=== PATIENT | male | born 1970 | race Caucasian/White ===

== ENCOUNTER 2025-03-14 14:33 | Outpatient (AMB) | payer BC, SELFPAY ==
--- NOTE | 2025-03-14 14:34 | A.OFFVIS_ITS ---
Vital Signs 03/14/25 14:36 Height 5 ft 9 in Weight 181 lb 8 oz BMI 26.8 BP 102/76 Blood Pressure Location Rt brachial Position Sitting Pulse 55 Pulse Source Pulse Oximeter Pulse Oximetry (%) 99 Oxygen Delivery Method Room Air Intake Visit Reasons: Asthma Allergies No Known Allergies Allergy (Verified 03/14/25 14:38) HPI Comments Details: Xavier is a 54 year old male, never smoker, with underlying h/o childhood asthma and anxiety. He was referred by PCP for pulmonary evaluation. He reports a history of childhood asthma that was relatively controlled with the use of albuterol MDI PRN, and symptoms resolved until his late 20s and again recently after developing an URI in October that lingered for approximately one month, for which he did not seek timely care. His primary care provider ordered a chest x- ray in early November which demonstrated tiny granulomas of the RUL and prescribed abx, Flonase, Zyrtec in addition to Albuterol MDI. Since initiating he reports some improvements in mucus production, reporting occasional cough. He is quite active and denies any respiratory symptoms during activity but notes a sensation of chest tightness and labored breathing towards the end of the day, hours after he has exerted himself. The patient has an albuterol inhaler but uses it infrequently. He notes that his symptoms are sometimes triggered by stress. He denies any known occupational or environmental exposures, although questions seasonal allergies. [facility] Social History (Updated 03/14/25 @ 14:38 by Selina Saini [facility]) Patient Tobacco Use Status: Never used Tobacco Review of Systems Narrative Const Denies chills, Denies excessive sweating, Denies fever(s), Denies headache(s) and Denies night sweats Eyes Denies dry eyes, Denies irritation and Denies itchy eyes ENT Reports Normal hearing present, Denies headache(s), Denies post nasal drip and Denies sore throat Card Denies chest pain, Denies chest pain at rest, Denies chest pain with activity, Denies claudication, Denies leg edema, Denies orthopnea and Denies paroxysmal nocturnal dyspnea Resp Denies chest congestion, Denies excessive phlegm production, Denies pain on inspiration, Denies pain with cough, Denies stridor and Denies wheezing Musc Denies myalgias Neuro Reports Normal hearing present and Denies headache(s) Endo Denies excessive sweating Todd/Lymph Denies lymphadenopathy Aller/Immun Denies itchy eyes, Denies seasonal rhinorrhea and Denies wheezing Physical Exam Exam Exam: Vital Signs: Last Vital Signs Pulse 55 03/14/25 14:36 BP 102/76 03/14/25 14:36 Pulse Ox 99 03/14/25 14:36 Oxygen Delivery Method Room Air 03/14/25 14:36 BMI result Body Mass Index 26.8 Const General: cooperative, healthy appearing, comfortable, no acute distress, well developed and alert Orientation/consciousness: patient oriented x3 Limitations: no limitations HEENT Head: Yes normal to inspection, Yes normocephalic and Yes atraumatic Ears: hearing grossly normal bilaterally and external ears normal Eyes General: appearance normal, both eyes and all related structures Eyelids: Yes eyelids normal Sclerae: sclerae normal EOM: EOMs intact bilaterally Neck Neck: Yes normal visual inspection and Yes no lymphadenopathy Lymphatic: no lymphadenopathy noted Chest Chest palpation & inspection: normal inspection of the chest Resp Effort & Inspection: normal respiratory effort, able to speak in complete sentences, no audible wheezes, no cough, no stridor, not tachypneic, no tripod positioning and no use of accessory muscles Auscultation: clear to auscultation bilaterally Cardio Jugular venous distension: no JVD Rate: regular rate Rhythm: regular rhythm Skin Other: warm, dry General skin exam: no rashes or lesions noted Neuro General: patient oriented x3 Cranial nerves: Yes Normal hearing present Cognition (Neuro): normal cognition Gait exam (Neuro): Normal gait present Extrem General: Yes normal to inspection, Yes capillary refill normal, Yes no clubbing, cyanosis or edema and Yes no pedal edema Psych Appearance: grossly normal and well kempt Speech and movement: Normal speech and movement present and Clear speech present Affect: normal affect Attitude: cooperative Thought process: Normal thought process present Thought content: Normal thought content present Insight: Good insight present (Psych) Judgement: Good judgement present (Psych) Assessment & Plan Assessment & Plan (1) Asthma: Code(s): J45.909 - Unspecified asthma, uncomplicated Category: Medical (2) Environmental allergies: Code(s): Z91.09 - Other allergy status, other than to drugs and biological substances Category: Medical (3) Pectus excavatum: Code(s): Q67.6 - Pectus excavatum Category: Medical Plan The patient's intermittent respiratory symptoms, which are sometimes triggered by stress, warrant further investigation for underlying asthma. A pulmonary function test will be ordered to assess for an obstructive or restrictive pattern. Allergy testing will also be arranged, given the common association with asthma and patient's symptoms. Advised to continue using the albuterol inhaler as needed, particularly before exertion. Will trial Airsupra in place of Albuterol MDI PRN. The patient's chest x-ray revealed mild pectus excavatum, which was noted as an incidental finding. This condition can cause a subjective feeling of breathing restriction, though it is often asymptomatic if mild. The upcoming pulmonary function test will help to objectively assess for any significant respiratory restriction. No specific intervention is required at this time. May consider chest CT if any restriction noted on PFT. The patient identifies stress as a trigger for his respiratory symptoms. The bidirectional relationship between anxiety and dyspnea was discussed. It was suggested that the patient consider working with a therapist for stress management. We will have a follow-up visit after these tests are completed to review the results. All questions were answered and patient is in agreement of plan. Patient Instructions - We will schedule you for a breathing test, also called a pulmonary function test. - Please be aware that the scheduling for this test is currently a few months out, likely in April. - We will also arrange for allergy testing. - Continue to use your albuterol inhaler as you need it for breathing symptoms. - Because stress seems to make your symptoms worse, you may find it helpful to speak with a therapist. - We will see you for a follow-up appointment after your tests are complete, likely in April. Orders: Orders Complete Blood Count Auto Diff 03/14/25 Z91.09 - Other allergy status, other than to drugs and biological substances PFT pulmonary function test Today J45.909 - Unspecified asthma, uncomplicated Resp Allergy Profile Region I 03/14/25 Z91.09 - Other allergy status, other than to drugs and biological substances Immunoglobulin E 03/14/25 Z91.09 - Other allergy status, other than to drugs and biological substances Medications: New albuterol-budesonide 90-80 mcg/actuation (Airsupra) 2 inhalations inhalation DAILY PRN 1 ea 0RF shortness of breath Coding Level of Care Code New Pt Level 4 (11376) Diagnoses Asthma J45.909 Environmental allergies Z91.09 Pectus excavatum Q67.6
[2025-03-14 14:36] VITALS: BP 102/76; PULSE 55; O2SAT 99; BMI 26.8
--- OUTSIDE RECORDS SUMMARY | 2025-03-14 18:49 | XMS_ITS ---
Author Name [facility] Organization Unknown Problems Problem Status Onset Date Problem Type Date of Resoluti on Source Deviated nasal septum active EncounterDiagnosisAct HHCCT Hypertrophy of nasal turbinates active EncounterDiagnosisAct HHCCT Encounters Encounter Type Encounter Reason Primary Diagnosis Location Date [facility] [employer] [facility] Care Team Organization Name Specialty Phone Email Start Date End [employer] 02/21/2025 [facility] 02/21/2025 [employer] 01/31/2025
--- OUTSIDE RECORDS SUMMARY | 2025-03-14 18:49 | XMS_ITS | Clinical Summary ---
Author Organization [facility] Address [address] [place] [id number] Care Team Providers Care Candy Separator Hard Name Role Phone Stephon Huff PA-C Primary Care Provider [phone] Allergies No known active allergies Medications albuterol (PROVENTIL HFA; VENTOLIN HFA) 108 (90 Base) MCG/ACT inhaler INHALE 1-2 PUFFS BY MOUTH EVERY 4 - 6 HOURS NEEDED 12/15/2024 Active triamcinolone (NASACORT AQ) 55 MCG/ACT Aerosol nasal sprayIndication s:Deviated nasal septum 2 sprays into each nostril daily. 1 each 3 02/21/2025 Active Active Problems No known active problems Encounters Date Type Department Care Team Description 02/21/2025 7:30 AM EST Office Visit [facility] [address], [place] [address] Oumar Fisher MD Deviated nasal septum (Primary Dx); Hypertrophy of nasal turbinates from Last 3 Months Social History Tobacco Use Types Packs/Day Years Used Date Smoking Tobacco: Never Passive Smoke Exposure: Never Smokeless Tobacco: Never Alcohol Use Standard Drinks/Week Comments Yes 0 (1 standard drink = 0.6 oz pur e alcohol) AUDIT-C Answer Date Recorded Q1: How often do you have a drink containing alc ohol? Monthly or less 02/21/2025 Q2: How many drinks containi ng alcohol do you have on a typical day when you are drinking? 1 or 2 02/21/2025 Frequency of Binge Drinking Not on file 01/29 Sex and Gender Information Value Date Recorded Sex Assigned at Not on file Legal Sex Male 9:16 AM EST Gender Identity Not on file Sexual Orientation Not on file Last Filed Vital Signs Vital Sign Reading Time Taken Comments Blood Pressure - - Pulse - - Temperature - - Respiratory Rate - - Oxygen Saturation - - Inhaled Oxygen Concentration - - Weight 83.9 kg (185 lb) 02/21/2025 8:00 AM EST Height 175.3 cm (5' 9 ) 02/21/2025 8:00 AM EST Body Mass Index 27.32 02/21/2025 8:00 AM EST Plan of Treatment Health Maintenance Due Date Last Done Comments Hepatitis C Virus Screening 1970 HIV Screening 11/28/1984 DTaP/Tdap/Td Vaccines (1 - Tdap) 11/28/1990 Hepatitis B Vaccines (1 of 3 - 19+ 3-dose series) 03/1990 Colonoscopy 11/28/2016 Pneumococcal Vaccines 50+ (1 of 1 - PCV) 11/28/2021 Zoster (Shingles) Vaccine (1 of 2) 11/28/2021 Influenza Vaccine 10/28/2024 COVID-19 Vaccine (1 - season) 2024 RSV Vaccine 50 years and old er and Patients (1 - 1-dose 75+ series) 11/28/2046 Insurance - [facility] Care Teams Candy Separator Hard Relationship Specialty Start Date End Date Stephon Huff PA-C [address] [place] [address] [facility] - General 02/21/25
== END 2025-03-14 15:10 | disposition home or self-care (01) ==
LOC: HO.HPSW 14:33
PROVIDERS: PCP Physician Assistant Medical; Referring Provider Physician Assistant Medical; Visit Provider Nurse Practitioner Family
DX: J45.909 Unspecified asthma, uncomplicated (principal); Z91.09 Other allergy status, other than to drugs and biological substances; Q67.6 Pectus excavatum
CPT/HCPCS: 99204

== ENCOUNTER 2025-03-14 14:33 | Outpatient (REF) | payer BC, SELFPAY ==
[2025-03-14 18:16] LABS: MANUAL DIFF FLAG NO
[2025-03-14 18:26] LABS: Hematocrit 40.0 % (42.0-52.0); Hemoglobin 13.7 g/dl (14.0-18.0); Imm Gran Abs Auto 0.02 X10*3/uL (0.00-0.03); Imm Gran Pct Auto 0.2 % (0.0-0.4); Lymphocytes Absolute Auto 1.7 X10*3/uL (1.2-4.9); Mean Corpuscular HGB Conc 34.3 g/dl (31.0-36.0); Mean Corpuscular Hemoglobin 29.8 pg (27.0-33.0); Mean Corpuscular Volume 87.0 fL (80.0-98.0); NRBC Abs Auto 0.000 X10*3/uL (0.0-0.012); NRBC Pct Auto 0.0 /100WBC (0.0-0.2); Platelet Count 259 X10*3/uL (160-400); Red Blood Count 4.60 X10*6/uL (4.60-5.80); White Blood Count 8.2 X10*3/uL (4.8-10.8)
[2025-03-21 11:00] LABS: Class Cockroach 0; Class Mouse Urine Protein 0; I006-IgE Cockroach, German <0.10
[2025-03-21 11:01] LABS: Class Aspergillus fumigatus 0; Class Cat Dander 0/1; Class Cladosporium herbarum 0; Class Dog Dander 1; Class Timothy Grass 0/1; D002 - IgE D farinae 0.68; E001 - IgE Cat Dander 0.19; E005 - IgE Dog Dander 0.37; G006 - IgE Timothy Grass 0.23; M002 - IgE Cladosporium herbar <0.10; M003 - IgE Aspergillus fumigat <0.10
[2025-03-21 11:02] LABS: Class Alternaria alternata 0; Class Cottonwood 0; Class Dermatophagoides farinae 1; Class Mountain Cedar 0; Class Oak 0/1; Class Sycamore 0; Class Walnut Tree 0; M006 - IgE Alternaria alternat <0.10; T006 - IgE Cedar, Mountain <0.10; T007 - IgE Oak, White 0.29; T010 - IgE Walnut <0.10; T011 - IgE Maple Leaf Sycamore <0.10; T014 - IgE Cottonwood <0.10
[2025-03-21 11:03] LABS: Class Bermuda Grass 0/1; Class Common Ragweed 0/1; Class Derm. pterony 2; Class Mugwort 0/1; Class White Ash 0; Class White Mulberry 0; T015 - IgE Ash, White <0.10; T070 - IgE White Mulberry <0.10; W001 - IgE Ragweed, Short 0.10; W006 - IgE Mugwort 0.27
[2025-03-21 11:04] LABS: Class Birch 2; Class Elm 0; Class Maple Box Elder 0/1; Class Penicillium crysogenum 0; Class Rough Pigweed 0; Class Sheep Sorrel 0; T001 IgE Maple/Box Elder 0.18; T008 IgE Elm, American <0.10; W014 IgE Pigweed, Common <0.10; W018 IgE Sheep Sorrel <0.10
== END 2025-03-14 14:34 | disposition home or self-care (01) ==
LOC: HO.WFDLDS 14:33
PROVIDERS: PCP Physician Assistant Medical; Referring Provider Physician Assistant Medical; Visit Provider Nurse Practitioner Family
DX: J45.909 Unspecified asthma, uncomplicated (principal); Z91.09 Other allergy status, other than to drugs and biological substances; Q67.6 Pectus excavatum; Z79.899 Other long term (current) drug therapy
CPT/HCPCS: 36415; 82785; 85025; 86003